=== PATIENT | male | born 1995 | race Caucasian/White ===

== ENCOUNTER 2021-03-31 12:04 | Emergency (ER) | payer OTHER ==
[~2021-03-31] VITALS: Ht 175.2 cm; Wt 86.2 kg
[2021-03-31] MEDS ORDERED: PREDNISONE20 M1 PO (13:53)
[2021-03-31] MEDS ORDERED: ZITHROMAX250 MG PO (13:53)
== END 2021-03-31 14:27 | disposition home or self-care (01) ==
LOC: ED 12:04
DX: J40 Bronchitis, not specified as acute or chronic (principal); R11.10 Vomiting, unspecified; Z88.0 Allergy status to penicillin